=== PATIENT | male | born 1950 | race African-American/Black ===

== ENCOUNTER 2020-06-23 13:22 | Inpatient (IN) ==
[2020-06-23] MEDS ORDERED: Isovue-370 500 ML BOTTLE IVP ONE (13:35)
[2020-06-23 13:52] LABS: Hematocrit 45.7 % (37.5-50.1); Hemoglobin 14.8 g/dL (12.9-16.9); Mean Corpuscular HGB Conc 32.4 g/dL (31.6-35.5); Mean Corpuscular Hemoglobin 27.8 pg (28.0-33.3); Mean Corpuscular Volume 85.9 fL (83.0-100.0); Mean Platelet Volume 10.5 fL (9.4-12.4); Platelet Count 270 K/mcL (140-400); Red Blood Count 5.32 M/mcL (4.19-5.50); Red Cell Distribution Width 13.4 % (11.5-14.5); White Blood Count 11.3 K/mcL (4.3-11.1)
[2020-06-23 13:58] LABS: INR 1.1; Prothrombin Time 12.7 Seconds (9.4-12.1)
[2020-06-23 14:01] LABS: Activated Partial Thrombo Time 30.2 Seconds (26.0-36.0)
[2020-06-23 14:18] LABS: BUN/Creatinine Ratio 21 (6-26); Blood Urea Nitrogen 23 mg/dL (8-23); Calcium 9.9 mg/dL (8.6-10.3); Carbon Dioxide 26 mEq/L (23-29); Chloride 100 mEq/L (98-107); Glucose 259 mg/dL (70-105); Osmolality,Calculated 293 (280-300); Potassium 4.7 mEq/L (3.5-5.1); Sodium 135 mEq/L (136-145); Troponin I < 0.03 ng/mL (< 0.04); eGFR For African Americans > 60 (> 60); eGFR For Non-African Americans > 60 (> 60)
[2020-06-23] MEDS ORDERED: Ondansetron 4 MG/2 ML VIAL IVP PRN (15:55)
[2020-06-23] MEDS ORDERED: Naloxone 0.4 MG/ML INJ IVP PRN (15:55)
[2020-06-23] MEDS ORDERED: SUBCUTANEOUS INSULIN PUMP SQ PRN (16:30)
[2020-06-23] MEDS ORDERED: Perflutren Lipid Microsphere 1.3 ML in 0.9 % Sodium Chloride 8.7 ML IVP PRN (16:35)
[2020-06-23] MEDS: *HR* Heparin 5,000 UNIT/ML VIAL SQ SCH (20:49)
[2020-06-24 03:53] LABS: Basophils # 0.1 K/mcL (0.0-0.2); Basophils % 0.5 %; Eosinophils # 0.4 K/mcL (0.0-0.6); Hematocrit 45.7 % (37.5-50.1); Immature Granulocytes % 0.5 % (0-4); Lymphocytes # 2.3 K/mcL (0.6-4.6); Lymphocytes % 25.1 %; Mean Corpuscular HGB Conc 32.8 g/dL (31.6-35.5); Mean Corpuscular Hemoglobin 28.3 pg (28.0-33.3); Mean Corpuscular Volume 86.2 fL (83.0-100.0); Mean Platelet Volume 10.3 fL (9.4-12.4); Monocytes # 0.6 K/mcL (0.0-1.3); Neutrophils # 5.9 K/mcL (1.6-8.9); Platelet Count 245 K/mcL (140-400); Red Cell Distribution Width 13.5 % (11.5-14.5); Segmented Neutrophils % 63.9 %; White Blood Count 9.3 K/mcL (4.3-11.1)
[2020-06-24 04:11] LABS: BUN/Creatinine Ratio 24 (6-26); Blood Urea Nitrogen 21 mg/dL (8-23); Calcium 9.4 mg/dL (8.6-10.3); Carbon Dioxide 23 mEq/L (23-29); Chloride 100 mEq/L (98-107); Chol/HDL Ratio 7.1 (0-4.9); Cholesterol 212 mg/dL (< 200); Glucose 261 mg/dL (70-105); HDL Cholesterol 30 mg/dL (40-59); Magnesium 1.1 mg/dL (1.6-2.6); Osmolality,Calculated 290 (280-300); Phosphorous 2.8 mg/dL (2.7-4.5); Potassium 4.1 mEq/L (3.5-5.1); Sodium 134 mEq/L (136-145); Triglycerides 437 mg/dL (< 150); eGFR For African Americans > 60 (> 60); eGFR For Non-African Americans > 60 (> 60)
[2020-06-24 04:26] LABS: Thyroid Stimulating Hormone 6.147 mcIU/mL (0.340-5.600)
[2020-06-24 04:38] LABS: Folate > 22.3 ng/mL (3.0-16.0); Vitamin B12 > 1500 pg/mL (250-1100)
[2020-06-24] MEDS: *HR* Heparin 5,000 UNIT/ML VIAL SQ SCH ×2 (05:22→12:59)
[2020-06-24 08:53] LABS: Triiodothyronine (T3) Free 3.29 pg/mL (2.50-3.90)
[2020-06-24] MEDS ORDERED: Finasteride 5 MG TABLET PO SCH (09:00)
[2020-06-24] MEDS ORDERED: Aspirin Enteric Coated 81 MG Tablet PO SCH (09:00)
[2020-06-24] MEDS ORDERED: (Ezetimibe [Zetia] 10 MG Tablet) PO SCH (09:00)
[2020-06-24 10:48] LABS: Adenovirus Not Detected (Not Detect); Bordetella Pertussis Not Detected (Not Detect); Chlamydophila pneumoniae Not Detected (Not Detect); Coronavirus 229E Not Detected (Not Detect); Coronavirus HKU1 Not Detected (Not Detect); Coronavirus NL63 Not Detected (Not Detect); Coronavirus OC43 Not Detected (Not Detect); Human Metapneumovirus Not Detected (Not Detect); Human Rhinovirus/Enterovirus Not Detected (Not Detect); Influenza A Subtype 2009 H1 Not Detected (Not Detect); Influenza B Not Detected (Not Detect); Mycoplasma pneumoniae Not Detected (Not Detect); Parainfluenza Virus 1 Not Detected (Not Detect); Parainfluenza Virus 2 Not Detected (Not Detect); Parainfluenza Virus 3 Not Detected (Not Detect); Parainfluenza Virus 4 Not Detected (Not Detect); Respiratory Syncytial Virus Not Detected (Not Detect); SARS-CoV-2 Not Detected (Not Detect)
[2020-06-24] MEDS ORDERED: *HR* Midazolam HCl 2 MG/2 ML VIAL ONE (15:50)
[2020-06-24] MEDS ORDERED: *HR* FentaNYL (PF) 100 MCG/2 ML VIAL ONE (15:50)
[2020-06-24] MEDS ORDERED: *HR* Propofol 200 MG/20 ML VIAL IVP ONE (15:51)
[2020-06-24] MEDS ORDERED: Ondansetron 4 MG/2 ML VIAL ONE (15:54)
[2020-06-24] MEDS ORDERED: Dexamethasone 4 MG/ML VIAL ONE (15:54)
[2020-06-24] MEDS ORDERED: Lidocaine -MPF 2% 2 ML VIAL ONE ×2 (15:54→17:30)
[2020-06-24] MEDS ORDERED: *HR* Succinylcholine 200 MG/10 ML VIAL IVP ONE (15:54)
[2020-06-24] MEDS ORDERED: *HR* Heparin 5,000 UNIT/ML VIAL ONE (15:55)
[2020-06-24] MEDS ORDERED: *HR* Remifentanil 2 MG VIAL IVP ONE (15:58)
[2020-06-24] MEDS ORDERED: *HR* Phenylephrine 10 MG/ML VIAL ONE (15:59)
[2020-06-24] MEDS ORDERED: *HR* Labetalol 20 MG/4 ML SYRINGE IVP ONE ×2 (17:04→21:21)
[2020-06-24] MEDS ORDERED: Heparin 1,000 UNITS/500 mL 500 ML ONE (17:35)
[2020-06-24] MEDS ORDERED: EPHEDrine 50 MG/ML VIAL ONE (17:36)
[2020-06-24] MEDS ORDERED: Protamine Sulfate 50 MG/5 ML VIAL IVP ONE ×2 (17:41→21:53)
[2020-06-24] MEDS ORDERED: Bupivacaine-MPF 0.25% 10 ML VIAL ONE (17:41)
[2020-06-24] MEDS ORDERED: Lidocaine 1% 20 ML MDV ONE (17:42)
[2020-06-24] MEDS ORDERED: Heparin 1,000 UNITS/500 mL 0 ML ONE (17:42)
[2020-06-24] MEDS ORDERED: Vancomycin 1,000 MG VIAL ONE ×2 (18:11→18:13)
[2020-06-24] MEDS ORDERED: *HR* PHENYLEPHRINE 1,000 MCG/10 ML SYRINGE IVP ONE (18:37)
[2020-06-24] MEDS ORDERED: Promethazine 6.25 MG in Water for inj. (sterile) 20 ML IVPB PRN (21:06)
[2020-06-24] MEDS ORDERED: Ondansetron 4 MG/2 ML VIAL IVP PRN ×2 (21:06→22:50)
[2020-06-24] MEDS ORDERED: *HR* HYDROcodone/Acet 5/325 mg TABLET PO PRN ×3 (21:06→22:50)
[2020-06-24] MEDS ORDERED: *HR* Labetalol 20 MG/4 ML SYRINGE IVP PRN (21:06)
[2020-06-24] MEDS ORDERED: *HR* HYDROmorphone PF 0.5 MG/0.5 ML SYRINGE IVP PRN (21:06)
[2020-06-24] MEDS ORDERED: Acetaminophen 325 MG TABLET PO PRN ×2 (22:50)
[2020-06-24] MEDS ORDERED: *HR* OxyCODONE Immed Rel 5 MG TABLET PO PRN (22:50)
[2020-06-24] MEDS ORDERED: Naloxone 0.4 MG/ML INJ IVP PRN (22:50)
[2020-06-24] MEDS ORDERED: 0.9 % Sodium Chloride 1,000 ML IVC SCH (22:50)
[2020-06-24] MEDS: *HR* OxyCODONE Immed Rel 5 MG TABLET PO PRN (23:27)
[2020-06-24] MEDS: *HR* Metoprolol 5 MG/5 ML VIAL IVP SCH (23:40)
[2020-06-25] MEDS ORDERED: *HR* Dextrose 50 % in Water (Vial) 50 ML VIAL IVP PRN (00:02)
[2020-06-25] MEDS ORDERED: D5% in Water 1,000 ML IVC PRN (00:02)
[2020-06-25] MEDS ORDERED: Dextrose Gel 15 GM/37.5 ML TUBE PO PRN ×2 (00:02)
[2020-06-25] MEDS ORDERED: Acetaminophen IV 500 MG/50 ML BAG IVPB ONE (00:22)
[2020-06-25] MEDS: CeFAZolin 2 GM/120 ML BAG IVPB SCH ×2 (00:56→10:51)
[2020-06-25 02:17] LABS: Eosinophils % 0.1 %; Hematocrit 43.1 % (37.5-50.1); Hemoglobin 13.9 g/dL (12.9-16.9); Immature Granulocytes % 0.5 % (0-4); Lymphocytes % 3.7 %; Mean Corpuscular HGB Conc 32.3 g/dL (31.6-35.5); Mean Corpuscular Hemoglobin 28.4 pg (28.0-33.3); Mean Corpuscular Volume 88.1 fL (83.0-100.0); Mean Platelet Volume 10.9 fL (9.4-12.4); Monocytes % 1.8 %; Platelet Count 223 K/mcL (140-400); Red Blood Count 4.89 M/mcL (4.19-5.50); Red Cell Distribution Width 13.6 % (11.5-14.5); Segmented Neutrophils % 93.7 %
[2020-06-25 02:18] LABS: Basophils % 0.2 %; Lymphocytes # 0.6 K/mcL (0.6-4.6); Monocytes # 0.3 K/mcL (0.0-1.3)
[2020-06-25 02:19] LABS: Neutrophils # 15.8 K/mcL (1.6-8.9); White Blood Count 16.9 K/mcL (4.3-11.1)
[2020-06-25] MEDS ORDERED: Vancomycin 1,750 MG/517.5 ML IV.SOLN IVPB ONE (06:00)
[2020-06-25] MEDS ORDERED: *HR* Heparin 5,000 UNIT/ML VIAL SQ SCH (06:00)
[2020-06-25] MEDS: *HR* OxyCODONE Immed Rel 5 MG TABLET PO PRN (06:40)
[2020-06-25] MEDS: *HR* Metoprolol 5 MG/5 ML VIAL IVP SCH (07:13)
[2020-06-25] MEDS ORDERED: Aspirin Enteric Coated 81 MG Tablet PO SCH (09:00)
[2020-06-25] MEDS: Insulin LISPRO 300 UNITS/3 ML VIAL SUBQ SCH ×2 (10:31→11:12)
[2020-06-25 11:24] VITALS: BP 120/72
[2020-06-25] MEDS ORDERED: Insulin LISPRO 300 UNITS/3 ML VIAL SUBQ SCH (21:00)
== END 2020-06-25 13:35 | disposition home or self-care (01) | DRG 38 ==
LOC: 3BNU 13:22 → EMEROOARM 13:22 → SUATTDRO 15:56 → 3BNU 17:46 → 2NNU 06-24 21:39
PROVIDERS: ADMIT Internal Medicine; ATTEND Family Medicine